=== PATIENT | female | born 1975 | race Two or more races ===

== ENCOUNTER 2018-08-10 02:47 | Emergency (ER) | payer MEDICAID, OTHER ==
[~2018-08-10] VITALS: Ht 177.8 cm; Wt 68.0 kg
[2018-08-10] MEDS ORDERED: IV NS 0.9% 500 ML BAG IV ONE (03:00)
--- NOTE | 2018-08-10 03:13 | NUR ---
PT BIB [facility] WITH A C/O WITNESSED SYNCOPE. PT PASSED OUT ON THE SOFA. PT'S CALLED 911. PT STATED THAT SHE HAS NOT BEEN DRINKING ENOUGH WATER BECAUSE "SHE'S TOO BUSY WITH 3 CHILDREN. A 4 YR OLD AND TWINS". PT IS AA&O X4. 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 PT WAS PLACED ON THE MONITOR AND CONTINUOUS PULSE OX.
[2018-08-10 03:19] LABS: BASOPHILS % (AUTO) 0.3 % (0.0-2.0); EOSINOPHILS % (AUTO) 0.4 % (0.0-6.0); HEMATOCRIT 29 % (33-45); HEMOGLOBIN 8.5 g/dL (11.5-14.8); LYMPHOCYTES # (AUTO) 2.7 /CMM (0.8-4.8); LYMPHOCYTES % (AUTO) 26.2 % (20.0-44.0); MEAN CORPUSCULAR HGB CONC 29 g/dl (31.0-36.0); MEAN CORPUSCULAR VOLUME 64 fL (82-100); MONOCYTES # (AUTO) 0.4 /CMM (0.1-1.30); MONOCYTES % (AUTO) 3.7 % (2.0-12.0); NEUTROPHILS # (AUTO) 7.2 /CMM (1.8-8.9); NEUTROPHILS % (AUTO) 69.4 % (43.0-81.0); PLATELET COUNT (AUTO) 364 /CMM (150-450); WHITE BLOOD COUNT (AUTO) 10.3 K/uL (4.3-11.0)
[2018-08-10] MEDS ORDERED: MECLIZINE HCL 12.5 MG TABLET PO ONE (03:30)
--- NOTE | 2018-08-10 03:30 | NUR ---
PT LEFT FOR CT.
[2018-08-10 03:40] LABS: ALANINE AMINOTRANSFERASE 20 U/L (12-78); ALBUMIN 3.4 g/dL (3.4-5.0); ALKALINE PHOSPHATASE 53 U/L (46-116); ASPARTATE AMINOTRANSFERASE 18 U/L (15-37); BILIRUBIN,DIRECT 0.1 mg/dL (0.0-0.2); BILIRUBIN,TOTAL 0.4 mg/dL (0.2-1.0); CALCIUM, SERUM 8.3 mg/dL (8.5-10.1); CARBON DIOXIDE 24 mmol/L (21-32); CHLORIDE 107 mmol/L (98-107); CREATININE 0.7 mg/dL (0.6-1.3); GLUCOSE 107 mg/dL (74-106); POTASSIUM 3.2 mmol/L (3.5-5.1); SODIUM SERUM 142 mmol/L (136-145); TOTAL PROTEIN, SERUM 6.5 g/dL (6.4-8.2); UREA NITROGEN, BLOOD 14 mg/dL (7-18)
--- NOTE | 2018-08-10 03:53 | NUR ---
PT RETURNED FROM CT VIA [facility].
[2018-08-10] MEDS ORDERED: MECLIZINE HCL 12.5 MG TABLET ONE (03:57)
--- NOTE | 2018-08-10 04:23 | NUR ---
PT IS STILL FEELING DIZZY. NOTIFIED. WILL CONTINUE TO WATCH PT.
--- NOTE | 2018-08-10 04:47 | NUR ---
PT APPEARS TO BE RESTING COMFORTABLY.
--- NOTE | 2018-08-10 06:05 | NUR ---
IV removed. Catheter intact and site benign. Pressure and 4x4 applied to site. No bleeding noted.Patient discharged to home in stable condition. Written and verbal after care instructions given. Patient verbalizes understanding of instruction AND RX. PT CALLED HER TO PICK HER UP. PT AMBULATED TO THE LOBBY TO WAIT FOR P/U. VSS.
[2018-08-10 06:30] VITALS: BP 120/84
== END 2018-08-10 06:30 | disposition home or self-care (01) ==
LOC: ER 02:49
DX: R42 Dizziness and giddiness (principal); R55 Syncope and collapse
CPT/HCPCS: 36415; 70450-TC; 71045-TC; 80048-TC; 80076-TC; 82962-TC; 84484-TC; 85025-TC; 85730-TC; J7040; J8597